=== PATIENT | female | born 1945 | race Caucasian/White ===

== ENCOUNTER → 2017-08-09 | Day surgery (SDC) | payer MEDICARE, MEDICAID ==
[~2017-08-09] VITALS: Ht 174 cm; Wt 82.0 kg
[~2017-08-09] MED LIST: CEFAZOLIN 1,000 MG ONE; CEFD300C37 PO; DEXAMETHASONE 4 MG/ML, 1ML ONE; FENTANYL PF 100 MCG/2ML ONE; KETO10TA PO; LACTATED RINGERS 1,000 ML IV SCH; MIDAZOLAM 1 MG/ML, 2ML ONE; NEOSTIGMINE 1 MG/ML, 10ML ONE; ONDANSETRON 2MG/ML, 2ML ONE; PLEASE ENTER HEIGHT AND WEIGHT MC SCH; PROPOFOL 10 MG/ML, 20ML ONE; ROCURONIUM 10 MG/ML,10ML ONE; SODIUM CHLORIDE 0.9% PF 10ML ONE
[2017-08-09 12:46] VITALS: BP 123/81
== END ==
LOC: OUT 11:49
PROVIDERS: ATTEND Urology
DX: Z02.9 Encounter for administrative examinations, unspecified (principal)
CPT/HCPCS: J0690; J1100; J2250; J2405; J2704; J2710; J3010